=== PATIENT | male | born 1990 | race Caucasian/White ===

== ENCOUNTER 2017-11-21 21:13 | Emergency (ER) | payer OTHER ==
[~2017-11-21] VITALS: Ht 182.9 cm; Wt 122.5 kg
[2017-11-21] MEDS ORDERED: MEDROLDOSEPACK PO (21:43)
[2017-11-21] MEDS ORDERED: TRIAMCINOLONE A80 G2 TOP (21:43)
[2017-11-21 22:06] VITALS: BP 142/96
== END 2017-11-21 22:00 | disposition home or self-care (01) ==
LOC: ER 21:13
DX: L30.9 Dermatitis, unspecified (principal); F17.210 Nicotine dependence, cigarettes, uncomplicated; Z88.8 Allergy status to other drugs, medicaments and biological substances

== ENCOUNTER 2020-07-03 20:49 | Emergency (ER) | payer OTHER ==
[~2020-07-03] VITALS: Ht 182.9 cm; Wt 103.9 kg
[~2020-07-03 20:49] MED LIST: MEDROLDOSEPACK PO; TRIAMCINOLONE A80 G2 TOP
[2020-07-03] MEDS ORDERED: ZOLOFT100 MG PO (20:56)
[2020-07-03] MEDS ORDERED: ATIVAN2 MG PO (20:57)
[2020-07-03] MEDS ORDERED: CLEOCIN HCL150 M1 PO (22:29)
[2020-07-03] MEDS ORDERED: PERCOCET 5-3251 EACH PO (23:30)
[2020-07-03 23:38] VITALS: BP 128/60
== END 2020-07-03 23:40 | disposition home or self-care (01) ==
LOC: ER 20:49
DX: N49.2 Inflammatory disorders of scrotum (principal); F32.9 Major depressive disorder, single episode, unspecified; F41.9 Anxiety disorder, unspecified; F17.210 Nicotine dependence, cigarettes, uncomplicated; Z79.899 Other long term (current) drug therapy; Z88.2 Allergy status to sulfonamides; Z88.1 Allergy status to other antibiotic agents